=== PATIENT | male | born 1970 | race African-American/Black ===

== ENCOUNTER 2025-01-11 08:38 | Emergency (ER) | payer OTHER ==
[~2025-01-11] VITALS: Ht 175.3 cm; Wt 80.0 kg
[2025-01-11 08:41] VITALS: O2SAT 100
[2025-01-11] MEDS: IBUPROFEN 800MG TABLET PO ONE (09:18)
[2025-01-11] MEDS ORDERED: CYCL5TAB3 MT (11:14)
[2025-01-11] MEDS ORDERED: IBUP-2030 MT (11:14)
[2025-01-11 11:20] VITALS: BP 118/75; PULSE 78; RESP 16; TEMP 37.1; O2SAT 99
== END 2025-01-11 11:29 | disposition home or self-care (01) ==
LOC: ER 08:38
DX: S39.012A Strain of muscle, fascia and tendon of lower back, initial encounter (principal); X58.XXXA Exposure to other specified factors, initial encounter; Y93.89 Activity, other specified; Y92.410 Unspecified street and highway as the place of occurrence of the external cause; Y99.8 Other external cause status
CPT/HCPCS: 72100; 99283